=== PATIENT | male | born 1980 | race Two or more races ===

== ENCOUNTER 2022-11-02 00:34 | Inpatient (IN) | payer OTHER ==
[~2022-11-02] VITALS: Ht 172.7 cm; Wt 149.4 kg
[2022-11-02] MEDS ORDERED: SODIUM CHLORIDE 0.9% 2,000 ML IV ONE (02:00)
[2022-11-02] MEDS ORDERED: PANTOPRAZOLE 40mg/50ML NS AE 50 ML IV ONE (02:00)
[2022-11-02] MEDS ORDERED: PANTOPRAZOLE 80 MG in SODIUM CHL 0.9% 100 ML IV ONE (02:00)
[2022-11-02] MEDS ORDERED: IODIXANOL 320MG/ML 100ML BTL IV ONE (02:04)
[2022-11-02 02:06] LABS: Albumin 3.5 g/dL (3.4-5.0); Calcium 8.3 mg/dL (8.5-10.1)
[2022-11-02 02:10] LABS: Bilirubin, Total 0.8 mg/dL (0.2-1.0)
[2022-11-02 02:11] LABS: Basophils # (auto) 0.1 10 ^3/uL (0-0.2); Basophils % (auto) 0.4 % (0.0-2.0); Eosinophils # (auto) 0 10 ^3/uL (0-0.8); Eosinophils % (auto) 0.2 % (0.0-7.0); Hematocrit 37.3 % (41.0-53.0); Hemoglobin 12.4 g/dL (13.5-17.5); Lymphocytes # (auto) 3.6 10 ^3/uL (0.4-5.4); Lymphocytes % (auto) 21.6 % (10.0-50.0); Mean Corpuscular Hemoglobin 30.2 pg (28.0-32.0); Mean Corpuscular Hgb Conc. 33.2 g/dL (32.0-36.0); Monocytes % (auto) 5.7 % (0.0-12.0); Neutrophils # (auto) 12.1 10 ^3/uL (1.6-8.6); Neutrophils % (auto) 72.1 % (37.0-80.0); Nucleated Red Blood Cells % 0.1 %; Red Blood Cells 4.09 10^6/uL (4.5-5.90); White Blood Cell 16.8 10^3/uL (4.4-10.8)
[2022-11-02 02:17] LABS: INR 1.34 (0.9-1.15); Partial Thromboplastin Time < 20.0 SEC (24.5-34.5)
[2022-11-02 02:23] LABS: Potassium 5.7 mmol/L (3.5-5.1)
[2022-11-02] MEDS ORDERED: PANTOPRAZOLE 40 MG/10 ML VIAL INJ IV ONE (04:59)
[2022-11-02] MEDS ORDERED: CALCIUM GLUC 1,000mg/50ml-NS 50 ML IV ONE (07:30)
[2022-11-02] MEDS ORDERED: SODIUM ZIRCONIUM CYCL 10 GM PAK PO ONE (07:30)
[2022-11-02] MEDS ORDERED: LACTATED RINGER'S 1,000 ML IV ONE (07:30)
[2022-11-02] MEDS ORDERED: SODIUM CHLORIDE 0.9% 1,000 ML IV SCH (07:30)
[2022-11-02] MEDS ORDERED: InsuLIN REG 1unit/0.01ml Soln (100units/ml) IV ONE (07:30)
[2022-11-02] MEDS ORDERED: NITROGLYCERIN 0.4 MG SL TAB SL PRN (07:30)
[2022-11-02] MEDS ORDERED: cefTRIAXone 1GM/50ML D5W 50 ML IV ONE (07:30)
[2022-11-02] MEDS ORDERED: ONDANSETRON HCL 4 MG/2 ML VIAL IV PRN (07:30)
[2022-11-02] MEDS ORDERED: DEXTROSE (50%) 50ML SYRG IV ONE (07:30)
[2022-11-02] MEDS ORDERED: MORPHINE SULFATE INJ 2 MG/ml SYRG IV PRN (07:30)
[2022-11-02 07:34] LABS: Hematocrit 37.6 % (41.0-53.0); Hemoglobin 12.3 g/dL (13.5-17.5)
[2022-11-02] MEDS: PANTOPRAZOLE 40mg/50ML NS AE 50 ML IV SCH ×3 (08:15→17:45)
[2022-11-02 08:48] LABS: Urine Bacteria NONE SEEN /hpf (None Seen); Urine Blood Negative /uL (Negative); Urine Hyaline Cast MANY /lpf (0 - 2); Urine Mucus FEW (None Seen); Urine Specific Gravity 1.046 (1.001-1.035); Urine WBC 1 /hpf (0 - 3)
[2022-11-02 11:26] LABS: BUN/Creatinine Ratio 24.3 (10.0-20.0); Calcium 8.1 mg/dL (8.5-10.1)
[2022-11-02 15:08] LABS: Cannabinoid Screen, Urine NEGATIVE (NEGATIVE); Opiate Scree,Urine NEGATIVE (NEGATIVE)
[2022-11-02 15:12] LABS: Alcohol, Urine < 3.0 mg/dL (0-10); Amphetamine Screen, Urine POSITIVE (NEGATIVE); Barbiturate Scree,Urine NEGATIVE (NEGATIVE); Benzodiazephine Screen, Urine NEGATIVE (NEGATIVE); Cocaine Screen, Urine NEGATIVE (NEGATIVE); Phencyclidine Screen, Urine NEGATIVE (NEGATIVE)
[2022-11-02 16:18] VITALS: BP 141/88
[2022-11-02 18:40] VITALS: BP 126/79
[2022-11-02 18:41] LABS: Cholesterol 93 mg/dL (< 200); HDL Cholesterol 16 mg/dL (40-59); LDL Cholesterol 58 mg/dL (< 100); Triglycerides 275 mg/dL (< 150)
[2022-11-02] MEDS ORDERED: AMPH20TA2 PO (20:17)
[2022-11-02] MEDS ORDERED: ROSU10TA16 PO (20:17)
[2022-11-02] MEDS ORDERED: AMLO1TAB22 PO (20:17)
[2022-11-02] MEDS ORDERED: CARV3.1240 PO (20:18)
[2022-11-02] MEDS ORDERED: ICOS1CAP2 PO (20:19)
[2022-11-02] MEDS ORDERED: OLME20TA53 PO (20:21)
[2022-11-02] MEDS ORDERED: ATORVASTATIN 20 MG TAB PO SCH (22:00)
[2022-11-02] MEDS ORDERED: CARVEDILOL 3.125 MG TAB PO SCH (22:00)
[2022-11-03] MEDS ORDERED: amLODIPine BESYLATE 5 MG TAB PO SCH (22:00)
== END 2022-11-02 19:45 | disposition left against medical advice (07) | DRG 378 ==
LOC: ER 00:34 → EDBD 00:34 → TELE 07:20 → TELE-EAST 18:12
PROVIDERS: ADMIT Internal Medicine Pulmonary Disease; ATTEND Student in an Organized Health Care Education/Training Program
PROC: 30233N1 Transfusion of Nonautologous Red Blood Cells into Peripheral Vein, Percutaneous Approach (ICD-10-PCS; principal; 2022-11-02)
DX: K92.2 Gastrointestinal hemorrhage, unspecified (principal); N17.9 Acute kidney failure, unspecified; Z68.43 Body mass index [BMI] 50.0-59.9, adult; D64.9 Anemia, unspecified; D72.829 Elevated white blood cell count, unspecified; E66.01 Morbid (severe) obesity due to excess calories; E86.9 Volume depletion, unspecified; E87.5 Hyperkalemia; I10 Essential (primary) hypertension; I48.91 Unspecified atrial fibrillation; M54.50 Low back pain, unspecified; R74.01 Elevation of levels of liver transaminase levels; R58 Hemorrhage, not elsewhere classified; K76.0 Fatty (change of) liver, not elsewhere classified; G47.33 Obstructive sleep apnea (adult) (pediatric); I95.9 Hypotension, unspecified; Z53.29 Procedure and treatment not carried out because of patient's decision for other reasons
CPT/HCPCS: 36415; 71045; 74177; 76705; 80048; 80053; 80061; 80307; 81001; 82962; 83605; 85014; 85018; 85025; 85610; 85730; 86703; 86803; 86850; 86900; 86901; 86920; 87340; 96365; 96367; 96368; 96375; C9113; G0378; J0696; J1815; Q9967